=== PATIENT | female | born 1960 | race Caucasian/White ===

== ENCOUNTER → 2016-05-14 | Outpatient (CLI) | payer OTHER | LOC: FIMAGING 16:10 | PROVIDERS: ATTEND Family Medicine | DX: M41.85 Other forms of scoliosis, thoracolumbar region (principal); M41.86 Other forms of scoliosis, lumbar region; M51.36 Other intervertebral disc degeneration, lumbar region; M50.30 Other cervical disc degeneration, unspecified cervical region; M43.12 Spondylolisthesis, cervical region ==

== ENCOUNTER → 2016-05-28 | Outpatient (CLI) | payer OTHER | LOC: FIMAGING 19:47 | PROVIDERS: ATTEND Family Medicine | DX: M54.5 Low back pain (principal) ==

== ENCOUNTER → 2016-08-03 | Outpatient (CLI) | payer OTHER | LOC: FIMAGING 15:38 | PROVIDERS: ATTEND Obstetrics & Gynecology | DX: Z12.31 Encounter for screening mammogram for malignant neoplasm of breast (principal) | CPT/HCPCS: G0202 ==

== ENCOUNTER 2017-02-08 10:14 | Emergency (ER) | payer OTHER ==
[2017-02-08 10:22] VITALS: RESP 18
--- NOTE | 2017-02-08 10:50 | EDPHY ---
General Narrative: CHIEF COMPLAINT: Diarrhea, cramping and abdominal pain post surgery HISTORY OF PRESENT ILLNESS: Patient presents with complaints of diarrhea, cramping abdominal pain. She is postop day 9 From a laparoscopic appendectomy and umbilical hernia repair. This was performed in [place], [place] at [facility] by Dr. Qureshi. Discharged home on the . She was there for several more days, returning on Wednesday. She had no bowel movement till night. At that time she had diarrhea. She continues to have diarrhea with any ambulation. Associated with abdominal cramping and pain. No fever. No bloody stools or emesis. No vomiting. No chest pain or shortness of breath. No other associated planes or modifying factors. 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 REVIEW OF SYSTEMS: Ten systems reviewed and are negative unless otherwise noted in the HPI PCP: Currently in transition SPECIALISTS: GI Dr. Robb PAST MEDICAL HISTORY: Fibromyalgia, irritable bowel, connective tissue disorder PAST SURGICAL HISTORY: No previous surgeries other than the appendectomy. SOCIAL HISTORY: Nonsmoker. No alcohol use. Lives in [place] but has a home in [place] as well FAMILY HISTORY: Noncontributory EXAMINATION General Appearance: Alert, no distress Head: normocephalic, atraumatic Eyes: Pupils equal and round, no conjunctival pallor or injection ENT, Mouth: Mucous membranes moist. Airway patent Neck: Normal inspection, supple, non-tender Respiratory: Lungs are clear to auscultation. No wheezing rhonchi or crackles Cardiovascular: Regular rate and rhythm. No murmur Gastrointestinal: Abdomen is soft and nondistended. There are laparoscopic incisions that are covered by Dermabond. They are clean dry and intact. No dehiscence. Minimal tenderness incision sites only. No guarding. No tympany. No rigidity. Nonacute abdomen Neurological: A&O, nonfocal, strength symmetric Skin: Warm and dry, no rash. Surgical incisions as above. No cellulitis. No petechiae or purpura Extremities: Nontender, no pedal edema Psychiatric: Mood and affect normal DIFFERENTIAL DIAGNOSES: Including but not limited to irritable bowel, infectious diarrhea, postoperative pain, inflammatory bowel, dehiscence MDM: 10:45 a.m. Abdominal pain with diarrhea and malaise postop day 9 from laparoscopic appendectomy and umbilical hernia repair. Abdominal exam is benign. Her incisions are clean, dry and intact. I suspect this is likely due to her irritable bowel. A given the recent surgery, I have ordered CT scan of the abdomen and pelvis. She is in no acute distress. IV is currently being placed. Laboratory studies ordered. No pain medication needed at this time per patient. 11:22 a.m. Laboratory studies are well within normal limits. Hospital was contacted and they faxed us the H&P, CT scan and discharge summary. They documented that they have not yet received the operative report. CT scan pending. 12:02 p.m. Case discussed with radiologist Dr. Webber. Findings from the CT scan discussed. Impression is colitis of the sigmoid and rectum. Patient will be re -evaluated and I will discuss with Dr. Montgomery. 12:42 p.m. Patient has been re-evaluated. She has no pain at this time. We discussed laboratory studies and CT scan findings. I have also discussed with Valentina. Dr. Montgomery I agree that there is no need for antibiotics or further intervention for the patient at this time. We discussed discharging the patient home with short course of pain medication and nausea medication. We discussed increasing fluid intake to keep up with the diarrhea. We discussed contacting her established primary care physician and GI physician for her to follow up with them outpatient. The patient is comfortable with this and would like to go home with this time. She is stable for discharge. We also discussed ED precautions. SUPERVISION: Patient was independently examined, but I discussed the case with my secondary supervising physician Dr. Montgomery - Diagnostics Imaging Results: Imaging Impressions Abdomen CT 02/08/17 10:43 Impression: 1. Suggestive of colitis involving the sigmoid colon and rectum. 2. Appendectomy. I telephoned results to Duong Kaur PA-C, at 1205 hours. - History Smoking Status: Former smoker - Objective Vital Signs: Initial Vital Signs Temperature (C) 99.3 F 02/08/17 10:16 Heart Rate 92 02/08/17 10:16 Respiratory Rate 18 02/08/17 10:16 Blood Pressure 132/91 H 02/08/17 10:16 O2 Sat (%) 98 02/08/17 10:16 O2 Delivery Mode Room Air Allergies/Adverse Reactions: No Known Allergies Allergy (Verified 02/08/17 10:22) Home Medications: Medication Instructions Recorded DULoxetine [Cymbalta 30 MG (*)] 30 mg PO 02/08/17 Ondansetron Odt [Zofran Odt 4 mg 4 mg PO Q6 PRN #12 tab 02/08/17 (*)] Promethazine HCl [Phenergan 25mg 25 mg PO Q8 PRN #12 tab 02/08/17 (*)] oxyCODONE HCL/ACETAMINOPHEN 1 each PO Q4-6PRN PRN #11 tablet 02/08/17 [Percocet 5-325 mg Tablet] Laboratory Results: Laboratory Results 02/08/17 10:40 02/08/17 10:40 02/08/17 02/08/17 02/08/17 10:51 10:40 10:40 WBC RBC Hgb POC Hgb Hct POC Hct MCV MCH MCHC RDW Plt Count MPV Neut % (Auto) Lymph % (Auto) [place] % (Auto) Eos % (Auto) Baso % (Auto) Nucleat RBC Rel Count Absolute Neuts (auto) Absolute Lymphs (auto) Absolute Monos (auto) Absolute Eos (auto) Absolute Basos (auto) Absolute Nucleated RBC Immature Gran % Immature Gran # PT 13.0 SEC SEC (12.0-15.0) INR 0.96 (0.83-1.16) APTT 30.7 SEC SEC (23.0-38.0) POC Sodium Sodium 142 mEq/L mEq/L (134-144) POC Potassium Potassium 4.3 mEq/L mEq/L (3.5-5.2) POC Chloride Chloride 104 mEq/L mEq/L (97-110) Carbon Dioxide 24 mEq/l mEq/l (22-31) Anion Gap 14 mEq/L mEq/L (8-16) POC BUN BUN 12 mg/dL mg/dL (7-23) Creatinine 0.9 mg/dL mg/dL (0.6-1.0) POC Creatinine Estimated GFR > 60 Glucose 97 mg/dL mg/dL (70-100) POC Glucose Calcium 10.1 mg/dL mg/dL (8.5-10.4) Total Bilirubin 0.4 mg/dL mg/dL (0.1-1.4) Conjugated Bilirubin 0.2 mg/dL mg/dL (0.0-0.5) Unconjugated Bilirubin 0.2 mg/dL mg/dL (0.0-1.1) AST 30 IU/L IU/L (14-46) ALT 39 IU/L IU/L (9-52) Alkaline Phosphatase 50 IU/L IU/L (38-126) Total Protein 7.0 g/dL g/dL (6.3-8.2) Albumin 4.5 g/dL g/dL (3.5-5.0) Lipase 71 IU/L IU/L (23-300) Urine Color YELLOW Urine Appearance HAZY Urine pH 7.0 (5.0-7.5) Ur Specific [place] 1.017 (1.002-1.030) Urine Protein NEGATIVE (NEGATIVE) Urine Ketones NEGATIVE (NEGATIVE) Urine Blood NEGATIVE (NEGATIVE) Urine Nitrate NEGATIVE (NEGATIVE) Urine Bilirubin NEGATIVE (NEGATIVE) Urine Urobilinogen NEGATIVE EU EU (0.2-1.0) Ur Leukocyte Esterase NEGATIVE (NEGATIVE) Urine RBC 3-5 /hpf H /hpf (0-3) Urine WBC 1-3 /hpf /hpf (0-3) Ur Epithelial Cells TRACE /lpf /lpf (NONE-1+) Urine Mucus TRACE /lpf /lpf (NONE-1+) Urine Glucose NEGATIVE (NEGATIVE) 02/08/17 02/08/17 10:40 10:39 WBC 6.82 10^3/uL 10^3/uL (3.80-9.50) RBC 4.80 10^6/uL 10^6/uL (4.18-5.33) Hgb 14.8 g/dL g/dL (12.6-16.3) POC Hgb 15.0 gm/dL gm/dL (12.6-16.3) Hct 42.8 % % (38.0-47.0) POC Hct 44 % % (38-47) MCV 89.2 fL fL (81.5-99.8) MCH 30.8 pg pg (27.9-34.1) MCHC 34.6 g/dL g/dL (32.4-36.7) RDW 13.1 % % (11.5-15.2) Plt Count 344 10^3/uL 10^3/uL (150-400) MPV 8.6 fL L fL (8.7-11.7) Neut % (Auto) 46.7 % % (39.3-74.2) Lymph % (Auto) 38.0 % % (15.0-45.0) [place] % (Auto) 8.5 % % (4.5-13.0) Eos % (Auto) 4.7 % % (0.6-7.6) Baso % (Auto) 1.2 % % (0.3-1.7) Nucleat RBC Rel Count 0.0 % % (0.0-0.2) Absolute Neuts (auto) 3.19 10^3/uL 10^3/uL (1.70-6.50) Absolute Lymphs (auto) 2.59 10^3/uL 10^3/uL (1.00-3.00) Absolute Monos (auto) 0.58 10^3/uL 10^3/uL (0.30-0.80) Absolute Eos (auto) 0.32 10^3/uL 10^3/uL (0.03-0.40) Absolute Basos (auto) 0.08 10^3/uL 10^3/uL (0.02-0.10) Absolute Nucleated RBC 0.00 10^3/uL 10^3/uL (0-0.01) Immature Gran % 0.9 % % (0.0-1.1) Immature Gran # 0.06 10^3/uL 10^3/uL (0.00-0.10) PT INR APTT POC Sodium 140 mEq/L mEq/L (134-144) Sodium POC Potassium 4.0 mEq/L mEq/L (3.3-5.0) Potassium POC Chloride 103 mEq/L mEq/L (97-110) Chloride Carbon Dioxide Anion Gap POC BUN 12 mg/dL mg/dL (7-23) BUN Creatinine POC Creatinine 1.0 mg/dL mg/dL (0.6-1.0) Estimated GFR Glucose POC Glucose 101 mg/dL H mg/dL (70-100) Calcium Total Bilirubin Conjugated Bilirubin Unconjugated Bilirubin AST ALT Alkaline Phosphatase Total Protein Albumin Lipase Urine Color Urine Appearance Urine pH Ur Specific [place] Urine Protein Urine Ketones Urine Blood Urine Nitrate Urine Bilirubin Urine Urobilinogen Ur Leukocyte Esterase Urine RBC Urine WBC Ur Epithelial Cells Urine Mucus Urine Glucose Medications Given: Discontinued Medications Sodium Chloride (Ns) 1,000 mls @ 0 mls/hr IV ONCE ONE PRN Reason: Wide Open Stop: 02/08/17 10:52 Last Admin: 02/08/17 10:53 Dose: 1,000 mls Ketorolac Tromethamine (Toradol) 15 mg IVP EDNOW ONE Stop: 02/08/17 11:32 Last Admin: 02/08/17 11:33 Dose: 15 mg Point of Care Test Results: 02/08/17 10:39 POC Sodium 140 POC Potassium 4.0 POC Chloride 103 POC BUN 12 POC Creatinine 1.0 POC Glucose 101 H Departure - Departure Disposition: Home, Routine, Self-Care Clinical Impression: Colitis Diarrhea Qualifiers: Diarrhea type: unspecified type Qualified Code(s): R19.7 - Diarrhea, unspecified Condition: Good Instructions: Acute Diarrhea (ED), Colitis (ED) Additional Instructions: 1. Increase fluid intake 2. Anti-inflammatories as discussed as needed 3. Pain medication as prescribed as needed 4. ED precautions as discussed 5. Contact her established primary care physician and GI physician for outpatient follow-up Referrals: Maxx Alaniz MD [Primary Care Provider] - As per Instructions Alexx Robb MD, FACG [Medical Doctor] - As per Instructions Prescriptions: Ondansetron Odt [Zofran Odt 4 mg (*)] 4 mg PO Q6 PRN #12 tab PRN Reason: Nausea/Vomiting, Use 1st oxyCODONE HCL/ACETAMINOPHEN [Percocet 5-325 mg Tablet] 1 each PO Q4-6PRN PRN # 11 tablet PRN Reason: Pain, Breakthrough Promethazine HCl [Phenergan 25mg (*)] 25 mg PO Q8 PRN #12 tab PRN Reason: Nausea/Vomiting, Use 1st
[2017-02-08] MEDS ORDERED: IOPAMIDOL (ISOVUE-300) 100 ML BTL ONE (10:51)
[2017-02-08] MEDS ORDERED: NS 1,000 ML IV ONE (10:51)
[2017-02-08 10:56] LABS: % IMMATURE GRANULYOCYTES 0.9 % (0.0-1.1); ABSOLUTE IMMATURE GRANULOCYTES 0.06 10^3/uL (0.00-0.10); ADD DIFF? NO; ADD MORPH? NO; ADD SCAN? NO; ATYPICAL LYMPHOCYTE FLAG 0 (0-99); FRAGMENT RBC FLAG 0 (0-99); HEMATOCRIT 42.8 % (38.0-47.0); HEMOGLOBIN 14.8 g/dL (12.6-16.3); LEFT SHIFT FLG 0 (0-99); LIPEMIA HEMOLYSIS FLAG 90 (0-99); MEAN CELL HEMOGLOBIN 30.8 pg (27.9-34.1); MEAN CELL HEMOGLOBIN CONCENTR. 34.6 g/dL (32.4-36.7); MEAN CELL VOLUME 89.2 fL (81.5-99.8); MEAN PLATELET VOLUME 8.6 fL (8.7-11.7); PLATELET CLUMPS FLAG 0 (0-99); PLATELET COUNT 344 10^3/uL (150-400); RED CELL DISTRIBUTION WIDTH 13.1 % (11.5-15.2)
[2017-02-08 11:05] LABS: COLOR YELLOW; LEUKOCYTE ESTERASE,URINE NEGATIVE (NEGATIVE); NITRITE,URINE NEGATIVE (NEGATIVE)
[2017-02-08 11:07] LABS: MUCUS TRACE /lpf (NONE-1+)
[2017-02-08 11:10] LABS: INR 0.96 (0.83-1.16)
[2017-02-08 11:11] LABS: APTT 30.7 SEC (23.0-38.0)
[2017-02-08 11:15] LABS: ALANINE AMINOTRANSFERASE 39 IU/L (9-52); ALBUMIN 4.5 g/dL (3.5-5.0); ALKALINE PHOSPHATASE 50 IU/L (38-126); ANION GAP 14 mEq/L (8-16); ASPARTATE AMINOTRANSFERASE 30 IU/L (14-46); BILIRUBIN,TOTAL 0.4 mg/dL (0.1-1.4); BILIRUBIN-CONJUGATED 0.2 mg/dL (0.0-0.5); BILIRUBIN-UNCONJUGATED 0.2 mg/dL (0.0-1.1); CALCIUM 10.1 mg/dL (8.5-10.4); CARBON DIOXIDE 24 mEq/l (22-31); CHLORIDE 104 mEq/L (97-110); CREATININE 0.9 mg/dL (0.6-1.0); GLOMERULAR FILTRATION RATE > 60; GLUCOSE 97 mg/dL (70-100); POTASSIUM 4.3 mEq/L (3.5-5.2); SODIUM 142 mEq/L (134-144)
[2017-02-08] MEDS ORDERED: KETOROLAC 30 MG/1 ML SDV IVP ONE (11:31)
[2017-02-08] MEDS ORDERED: KETOROLAC 15 MG/1 ML SDV ONE (11:32)
[2017-02-08 12:58] VITALS: BP 152/89; PULSE 54; TEMP 97.9; O2SAT 96
== END 2017-02-08 12:58 | disposition home or self-care (01) ==
DX: K52.9 Noninfective gastroenteritis and colitis, unspecified (principal); Z87.891 Personal history of nicotine dependence
CPT/HCPCS: 82947-QW; 96374; J1885; Q9967

== ENCOUNTER 2018-03-05 07:27 | Emergency (ER) | payer OTHER ==
[2018-03-05] MEDS ORDERED: fentaNYL 100 MCG/2 ML INJ IVP ONE (07:46)
[2018-03-05] MEDS ORDERED: NS 1,000 ML IV ONE (07:46)
[2018-03-05] MEDS ORDERED: ONDANSETRON 4 MG/2 ML VIAL IVP ONE (07:46)
--- NOTE | 2018-03-05 07:59 | EDPHY ---
H & P Time Seen by Provider: 03/05/18 07:40 HPI/ROS: CHIEF COMPLAINT: Abdominal pain, bloody diarrhea HISTORY OF PRESENT ILLNESS: Patient is a 57-year-old female who presents emergency department with ongoing left lower quadrant abdominal cramping and blood in stool. The patient states that she had her or appendix removed in [facility] in early January. She subsequently came home. She was seen in the emergency department on 02/08/2017 for similar symptoms. At that time she had a CT scan and laboratory workup. She was discharged from the ER and was told to follow up with assayer. Patient states she has had a longstanding history of diarrhea. Seems to have worsened after the surgery. She has had a previous colonoscopy in August 2017. She was told to come back in 5-10 years. Patient complains of left lower quadrant moderate pain. It does not radiate. No nausea or vomiting. No fevers or chills. Patient is question whether she has had IBS. She is concerned that she might have C difficile. REVIEW OF SYSTEMS: 10 systems were reveiwed and are negative with the exception of the elements mentioned in the history of present illness. Past Medical/Surgical History: Includes fibromyalgia, irritable bowel, connective tissue disorder Past surgical history: Appendectomy Social history: Patient lives in [place]. She does not smoke. Smoking Status: Never smoked Physical Exam: 36.6, 115/85, 84, 17, 97% on room air GENERAL: No acute distress, alert. HEENT: Eyes normal to inspection, normal pharynx, no signs of dehydration. NECK: Normal, supple. RESPIRATORY: Clear to auscultation bilaterally, no rales, rhonchi or wheezing. CVS: Regular rate and rhythm, no rubs, murmurs, or gallops. ABDOMEN: Soft, left lower quadrant tenderness to palpation with no rebound or guarding, nondistended, no organomegaly. BACK: Normal to inspection, no CVA tenderness. SKIN: Normal color, no rash, warm, dry. No pallor. EXTREMITIES: No pedal edema, no calf tenderness, no Homans sign or cords, no joint swelling. NEURO/PSYCH: Alert and oriented, normal mood and affect, normal motor sensory exam. Constitutional: Initial Vital Signs Temperature (C) 36.6 C 03/05/18 07:30 Heart Rate 84 03/05/18 07:30 Respiratory Rate 17 03/05/18 07:30 Blood Pressure 115/85 H 03/05/18 07:30 O2 Sat (%) 97 03/05/18 07:30 O2 Delivery Mode Room Air Allergies/Adverse Reactions: No Known Allergies Allergy (Verified 02/08/17 10:22) Home Medications: Medication Instructions Recorded DULoxetine [Cymbalta 30 MG (*)] 30 mg PO 02/08/17 oxyCODONE/APAP 5/325 [Percocet 1 - 2 tab PO Q4PRN PRN #11 tab 03/05/18 5/325 (*)] Medical Decision Making - Diagnostics Imaging Results: Imaging Impressions Abdomen CT 03/05/18 07:46 Impression: 1. Recurrent mild rectosigmoid colitis. Has the patient been evaluated for inflammatory bowel disease such as Crohn's or UC? Interestingly, this is in the same distribution as that seen on the CT study of 02/08/2017. 2. Status post appendectomy. 3. Moderate upstream constipation. Findings were discussed with VIRY RAMIREZ MD at 10:01, on 03/05/2018. ED Course/Re-evaluation: In the emergency department I discussed possible etiologies with the patient. I answered all her questions. Laboratory studies including stool samples were sent. Because the patient has focal left lower quadrant tenderness a CT scan was ordered. I discussed the risks and benefits of CT imaging and her recent image in January. Patient consents to the procedure. CBC and chemistry unremarkable. LFTs and lipase are normal. UA is unremarkable. CT of the abdomen pelvis: Please refer the dictated report by Dr. Morin. Patient has inflammation in rectum and distal sigmoid. There is also constipation noted. This looks similar to her previous imaging study Discussed the results with the patient. I answered all her questions. Patient will follow up with Gastroenterology. She was given follow-up information. A stool sample was sent to the lab. This will not be available during the ER stay. Patient is aware of this. Her primary care physician or GI will follow up on the results for C difficile. She is given warnings prior to leaving. She will return with worsening symptoms. Differential Diagnosis: My differential includes but is not limited to diverticulitis, diverticular abscess, viral illness, C difficile - Data Points Laboratory Results: Laboratory Results 03/05/18 08:10 03/05/18 08:10 03/05/18 03/05/18 03/05/18 08:10 08:10 08:10 WBC 4.88 10^3/uL 10^3/uL (3.80-9.50) RBC 4.65 10^6/uL 10^6/uL (4.18-5.33) Hgb 14.1 g/dL g/dL (12.6-16.3) Hct 41.5 % % (38.0-47.0) MCV 89.2 fL fL (81.5-99.8) MCH 30.3 pg pg (27.9-34.1) MCHC 34.0 g/dL g/dL (32.4-36.7) RDW 12.6 % % (11.5-15.2) Plt Count 270 10^3/uL 10^3/uL (150-400) MPV 9.0 fL fL (8.7-11.7) Neut % (Auto) 48.1 % % (39.3-74.2) Lymph % (Auto) 31.4 % % (15.0-45.0) [place] % (Auto) 8.4 % % (4.5-13.0) Eos % (Auto) 10.9 % H % (0.6-7.6) Baso % (Auto) 1.0 % % (0.3-1.7) Nucleat RBC Rel Count 0.0 % % (0.0-0.2) Absolute Neuts (auto) 2.35 10^3/uL 10^3/uL (1.70-6.50) Absolute Lymphs (auto) 1.53 10^3/uL 10^3/uL (1.00-3.00) Absolute Monos (auto) 0.41 10^3/uL 10^3/uL (0.30-0.80) Absolute Eos (auto) 0.53 10^3/uL H 10^3/uL (0.03-0.40) Absolute Basos (auto) 0.05 10^3/uL 10^3/uL (0.02-0.10) Absolute Nucleated RBC 0.00 10^3/uL 10^3/uL (0-0.01) Immature Gran % 0.2 % % (0.0-1.1) Immature Gran # 0.01 10^3/uL 10^3/uL (0.00-0.10) Sodium 136 mEq/L mEq/L (135-145) Potassium 4.2 mEq/L mEq/L (3.5-5.2) Chloride 107 mEq/L mEq/L (97-110) Carbon Dioxide 24 mEq/l mEq/l (22-31) Anion Gap 5 mEq/L L mEq/L (6-14) BUN 14 mg/dL mg/dL (7-23) Creatinine 0.9 mg/dL mg/dL (0.6-1.0) Estimated GFR > 60 Glucose 98 mg/dL mg/dL (70-100) Calcium 9.3 mg/dL mg/dL (8.5-10.4) Total Bilirubin 0.6 mg/dL mg/dL (0.1-1.4) Conjugated Bilirubin 0.3 mg/dL mg/dL (0.0-0.5) Unconjugated Bilirubin 0.3 mg/dL mg/dL (0.0-1.1) AST 23 IU/L IU/L (14-46) ALT 24 IU/L IU/L (9-52) Alkaline Phosphatase 50 IU/L IU/L (38-126) Total Protein 6.6 g/dL g/dL (6.3-8.2) Albumin 4.2 g/dL g/dL (3.5-5.0) Lipase 75 IU/L IU/L (23-300) Urine Color YELLOW Urine Appearance HAZY Urine pH 5.0 (5.0-7.5) Ur Specific [place] 1.017 (1.002-1.030) Urine Protein NEGATIVE (NEGATIVE) Urine Ketones NEGATIVE (NEGATIVE) Urine Blood 1+ H (NEGATIVE) Urine Nitrate NEGATIVE (NEGATIVE) Urine Bilirubin NEGATIVE (NEGATIVE) Urine Urobilinogen NEGATIVE EU EU (0.2-1.0) Ur Leukocyte Esterase NEGATIVE (NEGATIVE) Urine RBC 1-3 /hpf /hpf (0-3) Urine WBC 1-3 /hpf /hpf (0-3) Ur Epithelial Cells TRACE /lpf /lpf (NONE-1+) Urine Bacteria TRACE /hpf H /hpf (NONE SEEN) Urine Mucus TRACE /lpf /lpf (NONE-1+) Urine Glucose NEGATIVE (NEGATIVE) Medications Given: Discontinued Medications Fentanyl (Sublimaze) 50 mcg IVP EDNOW ONE Stop: 03/05/18 07:47 Last Admin: 03/05/18 08:22 Dose: 50 mcg Sodium Chloride (Ns) 1,000 mls @ 0 mls/hr IV EDNOW ONE; Wide Open PRN Reason: Protocol Stop: 03/05/18 07:47 Last Admin: 03/05/18 08:21 Dose: 1,000 mls Ondansetron HCl (Zofran) 4 mg IVP EDNOW ONE Stop: 03/05/18 07:47 Last Admin: 03/05/18 08:22 Dose: 4 mg Departure - Departure Disposition: Home, Routine, Self-Care Clinical Impression: Abdominal pain Qualifiers: Abdominal location: left lower quadrant Qualified Code(s): R10.32 - Left lower quadrant pain Condition: Good Instructions: Abdominal Pain (ED) Additional Instructions: Return with increasing abdominal pain, fever, bleeding or any other concerns. Referrals: Maxx Alaniz MD [Primary Care Provider] - 2-3 days without fail Oscar Gamez MD [Medical Doctor] - 5-7 days, call for appt. Prescriptions: oxyCODONE/APAP 5/325 [Percocet 5/325 (*)] 1 - 2 tab PO Q4PRN PRN #11 tab PRN Reason: For Moderate To Severe Pain
[2018-03-05 08:33] LABS: PLATELET COUNT 270 10^3/uL (150-400)
[2018-03-05] MEDS ORDERED: IOPAMIDOL (ISOVUE-300) 100 ML BTL ONE (09:06)
[2018-03-05 10:22] VITALS: BP 128/86
== END 2018-03-05 10:20 | disposition home or self-care (01) ==
DX: R10.32 Left lower quadrant pain (principal); E86.9 Volume depletion, unspecified
CPT/HCPCS: 96374; J2405; J3010; Q9967